=== PATIENT | female | born 1980 | race Caucasian/White ===

== ENCOUNTER → 2019-03-13 10:57 | Outpatient (BNVA) | payer OTHER, SELFPAY | PROVIDERS: Family Provider Nurse Practitioner; PCP Nurse Practitioner; Referring Provider Nurse Practitioner; Visit Provider Nurse Practitioner | DX: N30.90 Cystitis, unspecified without hematuria (principal) | CPT/HCPCS: 81003 ==

== ENCOUNTER 2019-03-28 14:53 | Outpatient (CLI) | payer OTHER, SELFPAY | END 2019-03-28 14:54 | disposition home or self-care (01) | LOC: LAB 14:57 | PROVIDERS: Family Provider Nurse Practitioner; PCP Nurse Practitioner; Visit Provider Nurse Practitioner | DX: N34.3 Urethral syndrome, unspecified (principal) | CPT/HCPCS: 87086 ==

== ENCOUNTER 2020-09-15 07:54 | Emergency (ER) | payer OTHER, SELFPAY ==
[2020-09-15 08:01] VITALS: BP 146/100; PULSE 105; RESP 16; TEMP 36.6; O2SAT 100; BMI 24.0
--- NOTE | 2020-09-15 08:05 | W.ED.GENADLT ---
HPI - General Adult General: Chief complaint: Chest Pain Stated complaint: Chest Pain Time Seen by Provider: 09/15/20 07:59 History of Present Illness: HPI narrative: This patient is a 40-year-old female who presents to the emergency department with a complaint of pain that starts in her left chest that radiates along her rib to her back. Patient states she was just driving to work and felt this pain. Patient states it hurts to move. On exam patient has pain over the paraspinous muscles along the rhomboids just below the shoulder blade. On the left side of her back. Which causes stabbing pain shooting around the rib. Patient states she has never had any issues like this before denies any awkward bending or stretching. The patient has pain with twisting of the torso and reaching with the left arm. We did discuss at length with patient about options. Patient will receive a Norflex injection. Patient is encouraged to rest today and alternate heat and ice. Follow-up with PCP in 2 to 3 days. May continue Tylenol Motrin as needed for any additional pain must follow-up with primary care physician as needed. Onset (ago): minute(s) Location: back Radiation: non-radiation Severity: moderate Severity scale (1-10): 4 Quality: stabbing Pain Consistency: constant Relieving factors: none Exacerbating factors: movement Associated symptoms: Deny chest pain, dyspnea, headache(s), nausea, rash, palpitations or vomiting Review of Systems General: Reports: 10 or more systems reviewed and unremarkable except in HPI and below Const: Denies: fever(s), chills, body aches or fatigue Eyes: Denies: change in vision or blurry vision ENMT: Denies: throat pain, hoarseness or mouth pain Card: Denies: chest pain, palpitations, irregular heart rhythm, edema, swelling of feet/ankles or lightheadedness Resp: Denies: dyspnea, productive cough, non-productive cough, wheezing or pain on inspiration GI: Denies: abdominal pain, nausea or vomiting : Denies: flank pain, difficulty voiding, dysuria, urinary frequency, urinary urgency or urinary hesitancy Musc: Reports: back pain; Denies: neck pain, extremity pain, extremity swelling, joint pain, joint swelling, joint redness, joint warmth or limited range of motion Skin/Breast: Denies: rash, pruritus, erythema or skin tenderness Neuro: Denies: headache(s), numbness in extremities or weakness in extremities Psych: Denies: anxiety or depression PFSH ED PFSH: Medical History History of hiatal hernia States that she was diagnosed with a hiatal hernia in 2016 and thinks that her problems of generalized abdominal pain, gastritis and irritation and abdomen are secondary to this. No pertinent past medical history Denies diabetes, asthma, hypertension, seizures, DVT/PE PCP: None--is in the process of finding a new PMD Surgical History History of breast augmentation 2001, bilateral Status post cholecystectomy Laparoscopic procedure performed on [address] Cheng Status post tubal ligation Laparoscopic procedure performed in 2009 Family History Mother Cancer of kidney Grandfather Parkinson disease maternal Denies family history of Cervical cancer Colon cancer Ovarian cancer Diabetes DVT (deep venous thrombosis) Heart disease Hyperlipidemia Breast cancer Anesthesia complication Bleeding disorder Pulmonary embolism Hypertension Thyroid condition Stroke Social History Smoking and tobacco status: current every day smoker Alcohol intake: never Physical Exam Const: COMMON NORMALS: no acute distress, average body habitus, patient oriented x3, no limitations, healthy appearing, alert and well nourished HENMT: COMMON NORMALS: normocephalic, atraumatic, hearing grossly normal bilaterally, external ears normal, EAC's normal, TM's normal bilaterally, Normal external nose present, Normal nasal mucous membranes and turbinates present, moist oral mucous membranes, oropharynx normal, dentition normal and gingiva normal HEAD & SCALP: normocephalic and atraumatic NOSE: Normal external nose present and Normal nasal mucous membranes and turbinates present EXTERNAL EAR: Yes external ears normal EXTERNAL AUDITORY CANAL: EAC's normal TYMPANIC MEMBRANE: TM's normal bilaterally Neck/C-Spine: COMMON NORMALS: full ROM, no lymphadenopathy, supple, no meningeal signs, no JVD, Thyroid normal and No carotid bruits THYROID: Thyroid normal Chest: COMMONS NORMALS: normal inspection of the chest, normal palpation of entire chest wall, normal inspection of the breasts and normal palpation of the breasts Breast/axilla inspection: Yes normal inspection of the breasts BREAST/AXILLA PALPATION: Yes normal palpation of the breasts Resp: COMMON NORMALS: normal respiratory effort, No retractions, No use of accessory muscles, clear to auscultation bilaterally and percussion normal AUSCULTATION: clear to auscultation bilaterally PERCUSSION: percussion normal Cardio: COMMON NORMALS: no JVD, regular rate, regular rhythm, S1 normal heart sound present, S2 normal heart sound present, No gallops present (Cardio), No clicks present (Cardio), No murmurs present (Cardio), No rub (Cardio) and Peripheral pulses 2+ throughout RATE: regular rate RHYTHM: regular rhythm HEART SOUNDS: S1 normal heart sound present and S2 normal heart sound present PERIPHERAL PULSES: Peripheral pulses 2+ throughout GI: COMMON NORMALS: Normal to inspection, nondistended, normoactive bowel sounds present, Soft to palpation, non-tender, No hepatosplenomegaly present, no masses and no bruits PALPATION: Yes Soft to palpation and Yes No hepatosplenomegaly present Back/Pelvis: COMMON NORMALS: thoracic and lumbar spine normal to inspection, thoraco-lumbar ROM normal and straight leg raise negative bilaterally GENERAL BACK: Yes tenderness (Small muscle spasm/trigger point left-sided paraspinous muscle.) BACK IMAGE (FEMALE): 1. Spasm that reproduces pain Extremity: COMMON NORMALS: normal to inspection, full ROM, capillary refill normal, no joint enlargement, no clubbing, cyanosis or edema, no calf tenderness and no pedal edema Neuro: COMMON NORMALS: patient oriented x3 SENSORIUM/ORIENTATION: Yes alert MENINGEAL SIGNS: Yes no meningeal signs MDM - General Adult MDM Narrative: Medical decision making narrative: This patient is a 40-year-old female who presents to the emergency department with a complaint of pain that starts in her left chest that radiates along her rib to her back. Patient states she was just driving to work and felt this pain. Patient states it hurts to move. On exam patient has pain over the paraspinous muscles along the rhomboids just below the shoulder blade. On the left side of her back. Which causes stabbing pain shooting around the rib. Patient states she has never had any issues like this before denies any awkward bending or stretching. The patient has pain with twisting of the torso and reaching with the left arm. We did discuss at length with patient about options. Patient will receive a Norflex injection. Patient is encouraged to rest today and alternate heat and ice. Follow-up with PCP in 2 to 3 days. May continue Tylenol Motrin as needed for any additional pain must follow-up with primary care physician as needed. Medical Records: Attestation: I reviewed the patient's medical records. Lab Data: Attestation: I reviewed the patient's lab results. Discharge Plan Discharge Patient Disposition: Home Clinical Impression: Back pain, Trigger point of thoracic region Condition: Stable Prescriptions: New cyclobenzaprine 10 mg tablet 10 mg PO BID PRN (Reason: muscle spasm) Qty: 10 RF: 0 No Action medroxyprogesterone [Depo-Provera] 150 mg/mL suspension 150 mg IM .EVERY 90 DAYS Qty: 1 RF: 3 Discharge Orders: Discharge ED (Routine); Ordered 09/15/20 Ordered By: Genaro Romero Discharge Diet: Advance as tolerated Discharge Activity: Resume usual activity Patient Instructions: Opioid Safety Activity Restrictions/Additional Instructions: Rest. Alternate heat and ice. Continue with Tylenol Motrin as needed for pain. If any additional medications needed follow-up with PCP. 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
[2020-09-15 08:27] VITALS: BP 136/109; PULSE 101; RESP 14; O2SAT 99
[2020-09-15] MEDS: orphenadrine 30 mg/mL Inj 2 mL 60 MG IM (08:32)
[2020-09-15 09:02] VITALS: BP 120/94; PULSE 97; RESP 12; O2SAT 97
== END 2020-09-15 08:53 ==
PROVIDERS: Emergency Provider Emergency Medicine
DX: M54.9 Dorsalgia, unspecified (principal); F17.200 Nicotine dependence, unspecified, uncomplicated
CPT/HCPCS: 96372; 99283; J2360

== ENCOUNTER 2021-01-12 12:52 | Outpatient (CLI) | payer OTHER, SELFPAY ==
[2021-01-12 12:57] VITALS: BP 129/89; PULSE 101; RESP 18; TEMP 36.9; O2SAT 97
[2021-01-12 13:02] VITALS: BMI 24.0
[2021-01-12 13:29] VITALS: BP 131/88; PULSE 87; RESP 18; TEMP 37; O2SAT 98
[2021-01-12 14:29] VITALS: BP 135/94; PULSE 85; RESP 18; TEMP 36.7; O2SAT 98
== END 2021-01-12 12:53 | disposition home or self-care (01) ==
LOC: OPS 12:55
PROVIDERS: PCP Nurse Practitioner; Visit Provider Nurse Practitioner
DX: U07.1 COVID-19 (principal)
CPT/HCPCS: 96365

== ENCOUNTER 2022-11-27 07:01 | Observation (INO) | payer OTHER, SELFPAY ==
[2022-11-27] VITALS (11 sets, daily range): BP systolic 104–143; BP diastolic 70–105; PULSE 64–100; RESP 10–19; TEMP 36.2–37.4; O2SAT 93–100
--- NOTE | 2022-11-27 07:04 | ED_ITS ---
HPI - Abdominal Pain General: Chief Complaint: Abdominal Pain Stated Complaint: lower abd pain Time Seen by Provider: 11/27/22 07:02 Source: patient Mode of arrival: ambulatory History of Present Illness: 42-year-old female presents emergency room complaining of abdominal pain she states it woke her up this morning. Midepigastric associated with nausea. She has not had any dysuria urgency or frequency no hematochezia melena hematemesis coffee-ground emesis. Nothing seems to exacerbate or relieve. She has a history of hiatal hernia. She has previously had a cholecystectomy and a tubal ligation. MD elicited complaint: abdominal pain Onset (ago): minute(s) Pain Consistency: constant Location: Epigastric Severity: severe Quality: cramping Radiation: none Exacerbating factors: nothing Relieving factors: nothing Associated Symptoms: Denies anorexia, belching, bloating, change in bowel habits, change in stool character, chills, coffee ground emesis, constipation, GI cramping, diarrhea, dyspepsia, dysuria, excessive flatus, fever(s), he artburn, hematochezia, hematuria, hematemesis, fecal incontinence, loose stools, melena, nausea, poor appetite, syncope and vomiting Review of Systems Const: Denies: fever(s) or chills Card: Denies: chest pain or syncope Resp: Denies: dyspnea, productive cough or non-productive cough GI: Reports: abdominal pain; Denies: nausea, vomiting, hematemesis, coffee ground emesis, heartburn, diarrhea, constipation, bloating, GI cramping, belching, excessive flatus, fecal incontinence, change in bowel habits, change in stool character, hematochezia or melena : Denies: dysuria or hematuria Skin/Breast: Denies: rash or pruritus PFSH ED PFSH: Medical History History of hiatal hernia States that she was diagnosed with a hiatal hernia in 2016 and thinks that her problems of generalized abdominal pain, gastritis and irritation and abdomen are secondary to this. No pertinent past medical history Denies diabetes, asthma, hypertension, seizures, DVT/PE PCP: None--is in the process of finding a new PMD Surgical History History of breast augmentation 2001, bilateral Status post cholecystectomy Laparoscopic procedure performed on [address] Cheng Status post tubal ligation Laparoscopic procedure performed in 2009 Family History Mother Cancer of kidney Grandfather Parkinson disease maternal Denies family history of Cervical cancer Colon cancer Ovarian cancer Diabetes DVT (deep venous thrombosis) Heart disease Hyperlipidemia Breast cancer Anesthesia complication Bleeding disorder Pulmonary embolism Hypertension Thyroid condition Stroke Social History Smoking and tobacco status: former smoker Alcohol intake: never Substance/Drug Use: never Physical Exam Const: GENERAL APPEARANCE: cooperative ORIENTATION/CONSCIOUSNESS: Yes awake, Yes oriented to person, Yes oriented to place and Yes oriented to time HENMT: COMMON NORMALS: normocephalic, atraumatic and hearing grossly normal bilaterally HEAD & SCALP: normocephalic and atraumatic Resp: COMMON NORMALS: normal respiratory effort, No retractions, No use of accessory muscles and clear to auscultation bilaterally AUSCULTATION: clear to auscultation bilaterally Cardio: COMMON NORMALS: regular rate, regular rhythm and No murmurs present (Cardio) RATE: regular rate RHYTHM: regular rhythm GI: COMMON NORMALS: No hepatosplenomegaly present AUSCULTATION: Yes normoactive bowel sounds PALPATION: Yes Tenderness to palpation present (GI) (Epigastric), No Guarding due to palpation present (GI) and Yes No hepatosplenomegaly present Extremity: COMMON NORMALS: normal to inspection, capillary refill normal, no clubbing, cyanosis or edema, no calf tenderness and no pedal edema Neuro: SENSORIUM/ORIENTATION: Yes oriented to person, Yes oriented to place and Yes oriented to time Skin: COMMON NORMALS: no rashes or lesions noted GENERAL SKIN EXAM: no rashes or lesions noted Course Vital Signs: Vital signs: Vital Signs Temperature 97.7 F 11/27/22 07:06 Pulse Rate 87 11/27/22 07:06 Respiratory Rate 16 11/27/22 07:06 Blood Pressure 143/105 11/27/22 07:06 Pulse Oximetry 100 11/27/22 07:06 Oxygen Delivery Me thod Room Air 11/27/22 07:06 MDM - Abdominal Pain Medical Decision Making Acute appendicitis. Pain is well controlled at this point. Patient has been given Zosyn. Discussed with on-call general surgery, Dr. Spencer is planning on taking patient directly to the OR from the ER. Medical Records I reviewed the patient's medical records. Lab Data I reviewed the patient's lab results. 11/27/22 07:14 11/27/22 07:14 Labs/Radiology: Radiology Impressions Abdomen/Pelvis CT 11/27/22 07:12 IMPRESSION: Acute appendicitis is demonstrated. No free air or free fluid collections are appreciated to indicate perforation. THIS REPORT CONTAINS FINDINGS THAT MAY BE CRITICAL TO PATIENT CARE. The findings were verbally communicated via telephone conference at 8:34 AM CDT on 11/27/2022 with DARIN JAMES. The findings were acknowledged and understood. Laboratory Results WBC 7.72 10^3/uL (3.29-11.43) 11/27/22 07:14 RBC 5.16 10^6/uL (3.85-5.65) 11/27/22 07:14 Hgb 15.40 g/dL (11.27-16.99) 11/27/22 07:14 Hct 46.3 % (36-47) 11/27/22 07:14 MCV 89.7 fl (85-98) 11/27/22 07:14 MCH 29.8 pg (27-33) 11/27/22 07:14 MCHC 33.3 g/dL (30-55) 11/27/22 07:14 RDW 12.5 % (12.1-15.1) 11/27/22 07:14 Plt Count 236 10^3/cmm (157-399) 11/27/22 07:14 MPV 9.8 fL (7.4-10.4) 11/27/22 07:14 Neut % (Auto) 63.5 % 11/27/22 07:14 Lymph % (Auto) 30.7 % 11/27/22 07:14 [place] % (Auto) 4.4 % 11/27/22 07:14 Eos % (Auto) 0.6 % 11/27/22 07:14 Baso % (Auto) 0.5 % 11/27/22 07:14 Neut # (Auto) 4.90 10^3/uL (1.8-7.7) 11/27/22 07:14 Lymph # (Auto) 2.4 10^3/uL (0.8-4.8) 11/27/22 07:14 [place] # (Auto) 0.3 10^3/uL (0.2-0.9) 11/27/22 07:14 Eos # (Auto) 0.1 10^3/uL (0.0-0.8) 11/27/22 07:14 Baso # (Auto) 0.0 10^3/uL (0.0-0.1) 11/27/22 07:14 Nucleated RBC % (auto) 0 % 11/27/22 07:14 Nucleated RBCs # 0.0 /100WBC 11/27/22 07:14 Sodium 139 mmol/L (136-145) 11/27/22 07:14 Potassium 4.3 mmol/L (3.5-5.1) 11/27/22 07:14 Chloride 106 mmol/L (98-107) 11/27/22 07:14 Carbon Dioxide 20 mmol/L (22-29) L 11/27/22 07:14 Anion Gap 17.3 (5-19) 11/27/22 07:14 BUN 12 mg/dL (6-20) 11/27/22 07:14 Creatinine 0.8 mg/dL (0.5-0.9) 11/27/22 07:14 GFR Calculation 79.0 mL/min (90-130) L 11/27/22 07:14 Glucose 110 mg/dL (65-115) 11/27/22 07:14 Calculated Osmolality 288 mOsm/kg (285-295) 11/27/22 07:14 Calcium 9.5 mg/dL (8.5-10.5) 11/27/22 07:14 Total Bilirubin 0.6 mg/dL (0.15-1.2) 11/27/22 07:14 AST 15 U/L (0-32) 11/27/22 07:14 ALT 22 U/L (0-33) 11/27/22 07:14 Alkaline Phosphatase 60 U/L (35-105) 11/27/22 07:14 Total Protein 8.2 g/dL (6.6-8.7) 11/27/22 07:14 Albumin 4.9 g/dL (3.5-5.2) 11/27/22 07:14 Globulin 3.3 g/dL (1.3-4.6) 11/27/22 07:14 Lipase 22 U/L (13-60) 11/27/22 07:14 HCG, Qual Negative (Negative) 11/27/22 07:14 Urine Color Yellow (Yellow) 11/27/22 08:22 Urine Appearance Clear (CLEAR) 11/27/22 08:22 Urine pH 6 (5-7) 11/27/22 08:22 Ur Specific [place] 1.010 (1.005-1.030) 11/27/22 08:22 Urine Protein Neg (Negative) 11/27/22 08:22 Urine Glucose (UA) Norm (Normal) 11/27/22 08:22 Urine Ketones 1+ (Negative) H 11/27/22 08:22 Urine Blood Neg (Negative) 11/27/22 08:22 Urine Nitrate Negative (Negative) 11/27/22 08:22 Urine Bilirubin Neg (Negative) 11/27/22 08:22 Urine Urobilinogen Norm mg/dL (Negative) 11/27/22 08:22 Ur Leukocyte Esterase Trace (Negative) H 11/27/22 08:22 Urine RBC 0-4 /hpf (0-2) H 11/27/22 08:22 Urine WBC 0-4 /hpf (0-5) H 11/27/22 08:22 Ur Squamous Epith Cells 0-4 /hpf (0-5) H 11/27/22 08:22 Amorphous Sediment Not Reportable 11/27/22 08:22 Urine Bacteria 1+ /hpf (NONE) H 11/27/22 08:22 Urine Mucus 1+ /hpf 11/27/22 08:22 All radiology interpretation(s) finalized by discharge Discharge Plan Discharge Patient Disposition: Admitted As Inpatient Clinical Impression: Acute appendicitis Condition: Stable Coding Level of Care Code ED [employer] V[employer] Developer for Alice Wilde
--- NOTE | 2022-11-27 07:12 | CTR_ITS ---
PROCEDURE INFORMATION: Exam: CT Abdomen And Pelvis Without Contrast Exam date and time: 11/27/2022 8:07 AM Age: 42 years old Clinical indication: Abdominal pain; Epigastric; Prior surgery; Surgery date: 6+ months; Surgery type: Gb tubal.No history of trauma or recent surgery is provided. TECHNIQUE: Imaging protocol: Computed tomography of the abdomen and pelvis without contrast. 212image(s) are provided. Radiation optimization: All CT scans at this facility use at least one of these dose optimization techniques: automated exposure control; mA and/or kV adjustment per patient size (includes targeted exams where dose is matched to clinical indication); or iterative reconstruction. Other technique: Axial images are available with sagittal and coronal reconstruction views. Automated dose exposure control is utilized. The DLP is 529.03. REPORTING DATA: Count of CT and Cardiac NM exams in prior 12 months: This patient has received 0 known CTs and 0 known cardiac nuclear medicine studies in the 12 months prior to the current study. COMPARISON: No recent CT comparison is currently available. Ultrasound report of 2019. Pelvic ultrasound report of 2019. HIDA scan report of 2019. RADIATION DOSE METRICS: Total DLP (mGy-cm): 529.03 FINDINGS: Lungs: No lobar consolidation is appreciated. Liver: There appears to be some mild hepatic steatosis. There is very subtle central biliary ductal prominence with no distal radiopaque calculus currently appreciated. Gallbladder and bile ducts: Cholecystectomy clips are present. Pancreas: No pancreatic ductal dilatation or calculus is currently appreciated. Spleen: Unremarkable. Adrenal glands: Unremarkable. Kidneys and ureters: No radiopaque obstructive calculus or hydronephrosis appreciated. There are some subcentimeter nonobstructive renal level calcifications for example including at the lower poles along with some subcentimeter fluid dense simple appearing cystic related change. Stomach and bowel: Some aspects of the colon are undistended. This may also be peristaltic related.There is abundant stool present limiting mucosal detail evaluation.The bowel gas pattern appears nonobstructive. There is a small sliding-type hiatal hernia demonstrated with slight gastroesophageal fold thickening. Appendix: The appendix is dilated and inflamed for example greatest thickness of approximately 1.2 cm. There is stranding adjacent along with some reactive appearing lymph nodes as it extends superior posteriorly from the cecal tip. Intraperitoneal space: No layering free air or significant abdominal fluid collections are appreciated. There appears to be some trace pelvic fluid which may also be physiologic. Vasculature: No abdominal aortic aneurysmal dilatation or periaortic fluid is appreciated. Lymph nodes: There are borderline reactive appearing para-aortic and mesenteric lymph nodes overall present.This along with ground-glass attenuation centrally can be seen with previous inflammation or adenitis sequela. Urinary bladder: The bladder is incompletely fluid filled for evaluation which may exagerate the wall thickness. This can also be seen with post inflammation sequela. Reproductive: Unremarkable as visualized. Bones/joints: Osseous alignment is maintained.No interval displaced fracture or dislocation is appreciated. There is some mild chronic appearing disc space degeneration of the lumbosacral junction predominantly. There is some incidental incomplete posterior element fusion at the lumbosacral junction. 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 Soft tissues: No radiopaque foreign body or subcutaneous emphysema is appreciated. There are chest wall breast implant surgical changes present. There are some posterior gluteal injection type related changes present. No other significant interval changes are appreciated. CT/CT abdomen pelvis con [id number] IMPRESSION: Acute appendicitis is demonstrated. No free air or free fluid collections are appreciated to indicate perforation. THIS REPORT CONTAINS FINDINGS THAT MAY BE CRITICAL TO PATIENT CARE. The findings were verbally communicated via telephone conference at 8:34 AM CDT on 11/27/2022 with LUIS GUPTA. The findings were acknowledged and understood.
[2022-11-27] MEDS: ondansetron 2 mg/ML SDV 2 mL 4 MG IVP (07:17)
[2022-11-27] MEDS: morphine 4 mg/mL SDV 1 mL IVP ×3 (07:17→07:58)
[2022-11-27] MEDS: lactated ringers 1,000 ML 999 ML IV ×2 (07:19→08:18)
[2022-11-27 07:35] LABS: Basophils % 0.5 %; Eosinophils # 0.1 10^3/uL (0.0-0.8); Eosinophils % 0.6 %; Hematocrit 46.3 % (36-47); Lymphocytes # 2.4 10^3/uL (0.8-4.8); Lymphocytes % 30.7 %; Mean Corpuscular HGB Conc 33.3 g/dL (30-55); Mean Corpuscular Hemoglobin 29.8 pg (27-33); Mean Corpuscular Volume 89.7 fl (85-98); Mean Platelet Volume 9.8 fL (7.4-10.4); Monocytes # 0.3 10^3/uL (0.2-0.9); Monocytes % 4.4 %; Neutrophils % 63.5 %; Nucleated Red Blood Cells % 0 %; Platelet Count 236 10^3/cmm (157-399); Red Blood Count 5.16 10^6/uL (3.85-5.65); Red Cell Distribution Width 12.5 % (12.1-15.1); White Blood Count 7.72 10^3/uL (3.29-11.43)
[2022-11-27 07:47] LABS: Alanine Aminotransferase 22 U/L (0-33); Albumin Level 4.9 g/dL (3.5-5.2); Alkaline Phosphatase 60 U/L (35-105); Anion Gap 17.3 (5-19); Aspartate Amino Transferase 15 U/L (0-32); Blood Urea Nitrogen 12 mg/dL (6-20); Calcium 9.5 mg/dL (8.5-10.5); Carbon Dioxide 20 mmol/L (22-29); Chloride 106 mmol/L (98-107); Globulin 3.3 g/dL (1.3-4.6); Glucose 110 mg/dL (65-115); Lipase 22 U/L (13-60); Osmolality Calculated 288 mOsm/kg (285-295); Potassium 4.3 mmol/L (3.5-5.1); Sodium 139 mmol/L (136-145); Total Bilirubin 0.6 mg/dL (0.15-1.2); Total Protein 8.2 g/dL (6.6-8.7)
[2022-11-27] MEDS: promethazine 25 mg/mL SDV 1 mL IM (07:50)
[2022-11-27 07:56] LABS: HCG, Serum Qual Negative (Negative)
[2022-11-27 08:46] LABS: Add Urine Culture? No; Add Urine Microscopic? YES; Bacteria Urine 1+ /hpf; Bilirubin Urine Neg (Negative); Blood Urine Neg (Negative); Glucose Urine UA Norm (Normal); Ketones Urine 1+ (Negative); Leukocyte Esterase Urine Trace (Negative); Mucus Urine 1+ /hpf; Nitrate Urine Negative (Negative); Protein Urine Neg (Negative); RBC Urine 0-4 /hpf (0-2); Squamous Epithelial Cell Urine 0-4 /hpf (0-5); Urine Appearance Clear (CLEAR); Urine Color Yellow (Yellow); Urobilinogen Urine Norm (Negative); WBC Urine 0-4 /hpf (0-5); pH Urine 6 (5-7)
[2022-11-27] MEDS: piperacillin-tazobactam 3.375 GM in sodium chloride 0.9% (plus) 50 ML IV (08:56)
[2022-11-27] MEDS: ketorolac 30 mg/mL INJ IVP (09:34)
--- NOTE | 2022-11-27 09:42 | PM.CONSULT ---
Providers/Reason For Consult Consulting Physician/Specialty*: General surgery Reason for Consult*: Acute appendicitis Attending Physician: Blayne Spencer MD History of Present Illness History of Present Illness Dasha Jesus is a 42 year old female who presents to the hospital complaining of 5 hours of severe abdominal pain in the lower quadrants, pain woke her up from her sleep. She denies nausea vomit, no changes in bowel movements. Pain is at the level of 9 out of 10. Review of Systems Narrative: 10 point review of systems done and negative otherwise noted in HPI Medications/Allergies Home Medications Medication Instructions Recorded Confirmed Last Taken Type medroxyprogesterone 150 mg/mL 150 mg IM .EVERY 90 DAYS #1 mL 12/03/21 11/27/22 09/21/22 Rx intramuscular suspension ~got in september (Depo-Provera) acetaminophen 500 mg tablet 500 - 1,000 mg PO Q6H PRN Pain 11/27/22 11/27/22 11/27/22 05:00 History 2 tabs ibuprofen 200 mg tablet 400 - 600 mg PO Q6H PRN Pain 11/27/22 11/27/22 Unknown History Allergies Allergy/AdvReac Type Severity Reaction Status Date / Time codeine AdvReac nausea and Verified 11/27/22 07:23 vomiting PFSH Acute PFSH: Medical History History of hiatal hernia States that she was diagnosed with a hiatal hernia in 2016 and thinks that her problems of generalized abdominal pain, gastritis and irritation and abdomen are secondary to this. No pertinent past medical history Denies diabetes, asthma, hypertension, seizures, DVT/PE PCP: None--is in the process of finding a new PMD Surgical History History of breast augmentation 2001, bilateral Status post cholecystectomy Laparoscopic procedure performed on [address] Cheng Status post tubal ligation Laparoscopic procedure performed in 2009 Family History Mother Cancer of kidney Grandfather Parkinson disease maternal Denies family history of Cervical cancer Colon cancer Ovarian cancer Diabetes DVT (deep venous thrombosis) Heart disease Hyperlipidemia Breast cancer Anesthesia complication Bleeding disorder Pulmonary embolism Hypertension Thyroid condition Stroke Social History Smoking and tobacco status: former smoker Alcohol intake: never Substance/Drug Use: never Vitals/I&O/Wt Last Vital Signs Temp 97.7 F 11/27/22 07:06 Pulse 84 11/27/22 09:36 Resp 18 11/27/22 09:36 BP 120/78 11/27/22 09:36 Pulse Ox 99 11/27/22 09:36 O2 Del Method Room Air 11/27/22 07:06 11/26/22 11/27/22 11/27/22 22:59 06:59 14:59 Intake Total 982.35 / 982.35 Balance 982.35 / 982.35 Weight last 48 hrs Weight 150 lb Physical Exam Narrative: General : Patient is well developed , no acute distress, oriented x3 Head : Normal cephalic, a-traumatic. Nose : Mucous membranes are without erythema. Lungs : Equal chest rise bilaterally, no use of accessory muscles, trachea is midline. CV : Rate and rhythm are normal. Abdomen : Soft, tender to palpation in the right lower quadrant, McBurney positive. Extremities : No edema. Upper extremities are normal bilaterally. Back : non-tender to palpation, no CVA tenderness. Data 11/27/22 07:14 11/27/22 07:14 A&P Assessment and plan (1) Acute appendicitis: Plan After complete history, physical examination and review of all available clinical data the following is my assessment. Patient presents with a clinical picture of acute appendicitis, which was verified by imaging. No evidence of perforation on CT scan. Patient will be taken to the OR for laparoscopic appendectomy. I discussed all the risk and benefits of the procedure including but not limited to bleeding, infection, damage of the surrounding structures, abscess formation, need for additional interventions, hernia formation, need for conversion to open procedure. Patient agrees with the risk benefits and wishes to proceed. In the meantime patient will receive 1 dose of Zosyn and Toradol for pain and antibiotic management. Coding Level of Care Code Acute Code for [facility] Diagnoses Acute appendicitis K35.80
--- NOTE | 2022-11-27 11:21 | P.ANESASSM_ITS ---
Pre-Anesthetic Assessment Height/Weight: Height 1.63 m Weight 68.039 kg Temp Pulse Resp BP Pulse Ox O2 Del Method 98.1 F 100 18 139/78 95 Room Air 11/27/22 10:00 11/27/22 10:00 11/27/22 10:00 11/27/22 10:00 11/27/22 10:00 11/27/22 10:00 Operation Date: 11/27/22 09:20 Proposed Procedures p Laparoscopic Appendectomy(Right) - Blayne Spencer MD Familial anesthetic complications: None Was Beta Devaughn taken within 24 hours: N/A Was Clonidine taken within 24 hours: N/A Last intake: > 8 hrs Social Alcohol and Tobacco Exam alert, oriented x 3, clear to auscultation bilaterally and regular rate & rhythm Airway Mallampati: Class I Dentition: full Anesthetic Plan ASA status: 1 Anesthesia: General Risk of > 500 ml blood loss (7ml/kg in children): No Medications/Allergies Home Medications Medication Instructions Recorded Confirmed Last Taken Type medroxyprogesterone 150 mg/mL 150 mg IM .EVERY 90 DAYS #1 mL 12/03/21 11/27/22 09/21/22 Rx intramuscular suspension ~got in september (Depo-Provera) acetaminophen 500 mg tablet 500 - 1,000 mg PO Q6H PRN Pain 11/27/22 11/27/2209/12 05:00 History 2 tabs ibuprofen 200 mg tablet 400 - 600 mg PO Q6H PRN Pain 11/27/22 11/27/22 Unknown History Allergies Allergy/AdvReac Type Severity Reaction Status Date / Time codeine AdvReac nausea and Verified 11/27/22 07:23 vomiting [facility] Anesthesia Medical History History of hiatal hernia States that she was diagnosed with a hiatal hernia in 2016 and thinks that her problems of generalized abdominal pain, gastritis and irritation and abdomen are secondary to this. No pertinent past medical history Denies diabetes, asthma, hypertension, seizures, DVT/PE PCP: None--is in the process of finding a new PMD Surgical History History of breast augmentation 2001, bilateral Status post cholecystectomy Laparoscopic procedure performed on [address] Cheng Status post tubal ligation Laparoscopic procedure performed in 2009 Family History Mother Cancer of kidney Grandfather Parkinson disease maternal Denies family history of Cervical cancer Colon cancer Ovarian cancer Diabetes DVT (deep venous thrombosis) Heart disease Hyperlipidemia Breast cancer Anesthesia complication Bleeding disorder Pulmonary embolism Hypertension Thyroid condition Stroke Social History Smoking and tobacco status: former smoker Alcohol intake: never Substance/Drug Use: never Data Anesthesia 11/27/22 07:14 11/27/22 07:14 Short CBC 11/27/22 Range/Units 07:14 WBC 7.72 (3.29-11.43) 10^3/uL Hgb 15.40 (11.27-16.99) g/dL Hct 46.3 (36-47) % MCV 89.7 (85-98) fl Plt Count 236 (157-399) 10^3/cmm Neut % (Auto) 63.5 % Neut # (Auto) 4.90 (1.8-7.7) 10^3/uL BMP 11/27/22 07:14 Sodium 139 Potassium 4.3 Chloride 106 Carbon Dioxide 20 L BUN 12 Creatinine 0.8 Glucose 110 Calcium 9.5 Liver Function 11/27/22 Range/Units 07:14 Total Bilirubin 0.6 (0.15-1.2) mg/dL AST 15 (0-32) U/L ALT 22 (0-33) U/L Alkaline Phosphatase 60 (35-105) U/L Albumin 4.9 (3.5-5.2) g/dL Urine 11/27/22 Range/Units 08:22 Urine Color Yellow (Yellow) Urine Appearance Clear (CLEAR) Urine pH 6 (5-7) Ur Specific [place] 1.010 (1.005-1.030) Urine Protein Neg (Negative) Urine Glucose (UA) Norm (Normal) Urine Ketones 1+ H (Negative) Urine Nitrate Negative (Negative) Urine Bilirubin Neg (Negative) Ur Leukocyte Esterase Trace H (Negative) Urine RBC 0-4 H (0-2) /hpf Urine WBC 0-4 H (0-5) /hpf Cardiac Studies: No Data to Display
[2022-11-27] MEDS: sodium chloride 0.9% 1,000 ML 30 ML IV (11:41)
[2022-11-27] MEDS: BUPivacaine 0.25% INJ 10 mL INJECTION (12:55)
--- NOTE | 2022-11-27 13:07 | PM.OP ---
Operative Report Date of procedure: November 27, 2022 Pre-op diagnosis: Acute appendicitis Post-op diagnosis: Acute appendicitis Specimens removed/disposition: Appendix Surgeon: Blayne Spencer MD Litigation Associate: JUAN MIGUEL OR Staff Complications: None Findings: Inflamed appendix at the level of the tip,, normal base. No evidence of perforation. Brief History: Is a 42-year-old female who presents to hospital complaining of abdominal pain, CT scan was positive for evidence of acute appendicitis. After discussion of risk and benefits as documented in my preop note patient was taken to the OR for laparoscopic appendectomy. Procedure: Patient was put in a supine position. General esthesia given. The abdomen was prepped and draped in the usual sterile fashion. Timeout was conducted. The abdomen was accessed via an infraumbilical incision with an open technique a 10 mm Trocar Was Placed and Fixed to the Fascia with 0 Vicryl. Additional 5 Mm Trocars Were Placed in the Suprapubic and Left Lower Quadrant Regions. Under Direct Visualization. No Evidence of Visceral Injury Was Noted upon Entry to the Abdomen. The Appendix Was Identified in the Right Lower Quadrant. It Was Noted to Be on a para-cecal Position. LigaSure Was Used To Dissect the Lateral Attachments to the Abdominal Wall from the Appendix and to Take down the Medial to the Level of the Base, Once the Complete Appendix Was Freed up from the Medial I Then Proceeded to Transect the Appendix with a 45 Mm Blue Low Endo SANTI Stapler. The Staple Line Appeared Viable, No Evidence of Bleeding, the Specimen Was Then Retrieved Via the Umbilical Incision with a Endo Catch Bag. Umbilical Trocar Was Removed. The Umbilical Trocar Site Was Then Closed with a Frank-Osman 0 Vicryl Suture under Direct Visualization. The Suprapubic Trocar Was Removed under Direct Visualization in the Left Lower Quadrant Trocar Was Used To Adequate the Pneumoperitoneum and Subsequently Removed. The Wounds Were Then Closed with #4-0 Monocryl for the Skin and Dermabond Was Applied. At the End of the Procedure All Counts Were Correct. The Patient Was Extubated and Transferred to the PACU in Stable Condition.
== END 2022-11-27 16:02 | disposition home or self-care (01) ==
LOC: ER 07:21 → OR 08:50 → ER 09:35 → MEDSURG 13:13
PROVIDERS: Admitting Provider Surgery; Emergency Provider Family Medicine; Visit Provider Surgery
PROC: 0DTJ4ZZ Resection of Appendix, Percutaneous Endoscopic Approach (ICD-10-PCS; CPT 44970; principal; 2022-11-27 09:00)
DX: K35.80 Unspecified acute appendicitis (principal); Z87.891 Personal history of nicotine dependence
CPT/HCPCS: 44970; 74176; 80053; 81001; 83690; 84703; 85025; 88304; 96365; 96372; 96375; 96376; 99285; G0378; J1100; J1170; J1200; J1885; J2250; J2270; J2405; J2543; J2550; J2704; J2710; J3010; J3490; J7030; J7120

== ENCOUNTER → 2023-01-11 10:30 | Outpatient (BNVA) | payer OTHER, SELFPAY | PROVIDERS: Visit Provider Obstetrics & Gynecology | DX: Z12.4 Encounter for screening for malignant neoplasm of cervix (principal); Z30.9 Encounter for contraceptive management, unspecified | CPT/HCPCS: 87624 ==

== ENCOUNTER → 2023-01-20 09:27 | Outpatient (BNVA) | payer OTHER, SELFPAY | PROVIDERS: Visit Provider Obstetrics & Gynecology | DX: N93.9 Abnormal uterine and vaginal bleeding, unspecified (principal) | CPT/HCPCS: 76830 ==

== ENCOUNTER → 2023-10-04 07:39 | Outpatient (BNVA) | payer OTHER, SELFPAY | PROVIDERS: Visit Provider Nurse Practitioner Family | DX: R30.0 Dysuria (principal) | CPT/HCPCS: 81000 ==

== ENCOUNTER 2023-12-29 07:47 | Outpatient (CLI) | payer OTHER, SELFPAY ==
--- NOTE | 2023-12-29 07:53 | MM_ITS ---
WS: [id number] BILATERAL SCREENING DIGITAL BREAST MAMMOGRAPHY WITH NADYA DISPLACEMENT VIEWS. CAD PERFORMED. HISTORY: SCREENING COMPARISON: None available. Bilateral craniocaudal and mediolateral oblique views are performed with tomosynthesis and SM. Nadya displacement views in CC and MLO projection also performed. Breasts composition: There are scattered areas of fibroglandular density. Implants are retropectoral and intact. There is a well-circumscribed mass in the lateral inferior RIG HT breast measuring 5 x 4 x 4 mm. No additional mass or calcification. MM/MM [facility] tomosynthesis [id number] IMPRESSION: BI-RADS: 0 - Incomplete: Need additional imaging evaluation. FOLLOW-UP: Need Additional Imaging Ultrasound recommended: Ultrasound directed to the lateral RIGHT breast from 7- 10 o'clock. Small mass adjacent to the implant.
== END 2023-12-29 07:48 | disposition home or self-care (01) ==
PROVIDERS: Visit Provider Obstetrics & Gynecology
DX: Z12.31 Encounter for screening mammogram for malignant neoplasm of breast (principal); R92.323 Mammographic fibroglandular density, bilateral breasts; N63.14 Unspecified lump in the right breast, lower inner quadrant; Z98.82 Breast implant status
CPT/HCPCS: 77063; 77067

== ENCOUNTER 2024-01-03 10:41 | Outpatient (CLI) | payer OTHER, SELFPAY ==
--- NOTE | 2024-01-03 10:56 | US_ITS ---
WS: [id number] ULTRASOUND RIGHT BREAST HISTORY: ABNORMAL MAMMO COMPARISON: 12/29/2023 TECHNIQUE: 2-D and Doppler. There is a very slightly lobulated hypoechoic mass adjacent to the RIGHT breast implant at 7:00, 4 cm from the nipple. This mass does correspond in size and location to the mammographic abnormality. Thi s hypoechoic mass measures 0.4 x 0.3 x 0.2 cm. Due to its position adjacent to the implant through tr ansmission is difficult to determine. US/US breast RT limited* [id number] IMPRESSION: BI-RADS: 3- Probably Benign FOLLOW-UP: 6 Month Follow-up Recommend RIGHT breast ultrasound follow-up in 6 months. This is an indetermina te mass which could be a cyst, lymph node or very early neoplasm adjacent to th e RIGHT breast implant.
== END 2024-01-03 10:42 | disposition home or self-care (01) ==
LOC: RAD 10:42
PROVIDERS: PCP Obstetrics & Gynecology; Visit Provider Obstetrics & Gynecology
DX: N63.14 Unspecified lump in the right breast, lower inner quadrant (principal); Z98.82 Breast implant status
CPT/HCPCS: 76642

== ENCOUNTER → 2024-01-05 10:05 | Outpatient (BNVA) | payer OTHER, SELFPAY | PROVIDERS: PCP Obstetrics & Gynecology; Visit Provider Nurse Practitioner Women's Health | DX: R59.9 Enlarged lymph nodes, unspecified (principal) | CPT/HCPCS: 80053; 85025 ==

== ENCOUNTER 2024-05-08 07:42 | Outpatient (CLI) | payer OTHER, SELFPAY ==
--- NOTE | 2024-05-08 07:45 | US_ITS ---
WS: [id number] ULTRASOUND LEFT BREAST HISTORY: N63.20 - Unspecified lump in the left breast, new palpable nodules towards the LEFT axilla and swelling. COMPARISON: Mammogram 12/29/2023 TECHNIQUE: 2-D and Doppler. Ultrasound directed to the axilla where there are benign lymph nodes. Benign fatty lymph nodes with normal shape. Similar size lymph nodes noted on the mammogram from 12/29/2023. No suspicious masses or area of shadowing. US/US breast LT limited* [id number] IMPRESSION: BI-RADS: 2- Benign FOLLOW-UP: See Report No ultrasound abnormality LEFT breast. Return to annual screening mammography.
== END 2024-05-08 07:43 | disposition home or self-care (01) ==
PROVIDERS: PCP Obstetrics & Gynecology; Visit Provider Obstetrics & Gynecology
DX: N63.20 Unspecified lump in the left breast, unspecified quadrant (principal); R92.8 Other abnormal and inconclusive findings on diagnostic imaging of breast; R59.0 Localized enlarged lymph nodes
CPT/HCPCS: 76642

== ENCOUNTER 2024-07-19 16:28 | Emergency (ER) | payer OTHER, SELFPAY ==
--- NOTE | 2024-07-19 16:32 | ECG_ITS ---
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 Measurements Intervals [place] Rate: 111 P: 65 GA: 140 QRS: 78 QRSD: 101 T: 67 QT: 336 QTc: 458 Interpretive Statements SINUS TACHYCARDIA INCOMPLETE RIGHT BUNDLE BRANCH BLOCK [90+ ms QRS DURATION, TERMINAL R IN V1/V2, 40+ ms S IN I/aVL/V4/V5/V6] No previous ECG available for comparison Electronically Signed On 07-24-2024 11:49:40 CDT by Altaf Redd M.D. [email or web address]
[2024-07-19 16:34] VITALS: BP 139/87; PULSE 116; RESP 17; TEMP 36.7; O2SAT 99; BMI 27.4
--- NOTE | 2024-07-19 17:58 | CTR_ITS ---
PROCEDURE INFORMATION: Exam: CTA Chest With Contrast Exam date and time: 07/19/2024 6:52 PM Age: 43 years old Clinical indication: Chest wall pain; Additional info: Chest pain TECHNIQUE: Imaging protocol: Computed tomographic angiography of the chest with contrast. Exam focused on the arteries. 3D rendering (Not supervised by radiologist): MIP and/or 3D reconstructed images were created by the technologist. Radiation optimization: All CT scans at this facility use at least one of these dose optimization techniques: automated exposure control; mA and/or kV adjustment per patient size (includes targeted exams where dose is matched to clinical indication); or iterative reconstruction. Contrast material: OMNIPAQUE 350; Contrast volume: 100 ml; Contrast route: INTRAVENOUS (IV); COMPARISON: CT abdomen pelvis wo con [id number] 11/27/2022 8:07 AM RADIATION DOSE METRICS: Total DLP (mGy-cm): 323.41 FINDINGS: Pulmonary arteries: The pulmonary arteries are adequately opacified for evaluation to the subsegmental level. There is no filling defect to suggest embolism. Aorta: The aorta is unremarkable. There is no aneurysm. Lungs: There is no consolidation. Pleural spaces: There is no pleural effusion or pneumothorax. Heart: There is no pericardial effusion. Heart size is normal. Lymph nodes: There is no mediastinal or hilar lymphadenopathy. Intraperitoneal space: Visible structures in the upper abdomen are unremarkable. Bones/joints: Bones are unremarkable. Soft tissues: There are bilateral subpectoral saline breast implants without evidence of extracapsular rupture. The extrathoracic soft tissues are unremarkable. CT/CT angio chest PE protcl [id number] IMPRESSION: No pulmonary embolism.
[2024-07-19 18:17] LABS: Basophils # 0.1 10^3/uL (0.0-0.1); Basophils % 0.7 %; Eosinophils # 0.1 10^3/uL (0.0-0.8); Eosinophils % 0.8 %; Hematocrit 44.6 % (36-47); Lymphocytes # 2.1 10^3/uL (0.8-4.8); Lymphocytes % 29.7 %; Mean Corpuscular HGB Conc 32.3 g/dL (30-55); Mean Corpuscular Hemoglobin 29.8 pg (27-33); Mean Corpuscular Volume 92.3 fl (85-98); Mean Platelet Volume 9.6 fL (7.4-10.4); Monocytes # 0.4 10^3/uL (0.2-0.9); Monocytes % 6.1 %; Neutrophils % 62.4 %; Nucleated Red Blood Cells % 0 %; Platelet Count 217 10^3/cmm (157-399); Red Blood Count 4.83 10^6/uL (3.85-5.65); Red Cell Distribution Width 12.8 % (12.1-15.1); White Blood Count 7.06 10^3/uL (3.29-11.43)
[2024-07-19 18:36] LABS: D Dimer <= 0.27 ug/mLFEU (0-0.59)
[2024-07-19 18:43] VITALS: BP 140/94; PULSE 88; O2SAT 98
[2024-07-19 18:44] LABS: Troponin(5th) Baseline < 6 ng/L (0-10)
[2024-07-19 18:53] LABS: Alanine Aminotransferase 23 U/L (0-33); Albumin Level 4.4 g/dL (3.5-5.2); Alkaline Phosphatase 54 U/L (35-105); Anion Gap 17.9 (5-19); Aspartate Amino Transferase 16 U/L (0-32); Blood Urea Nitrogen 14 mg/dL (6-20); Calcium 9.5 mg/dL (8.5-10.5); Carbon Dioxide 19 mmol/L (22-29); Chloride 106 mmol/L (98-107); Creatinine Clr Calc Pharmacy 79.5078; Globulin 2.7 g/dL (1.3-4.6); Glomerular Filtration Rate 68.7 mL/min (90-130); Glucose 103 mg/dL (65-115); NT Pro B Type Natriuretic Pept < 36 pg/mL (0-125); Osmolality Calculated 289 mOsm/kg (285-295); Potassium 3.9 mmol/L (3.5-5.1); Sodium 139 mmol/L (136-145); Total Bilirubin 0.3 mg/dL (0.15-1.2); Total Protein 7.1 g/dL (6.6-8.7)
[2024-07-19] MEDS: iohexol 350 mg/mL 500 mL Btl (per mL) IV (18:58)
[2024-07-19 20:28] VITALS: BP 137/96; PULSE 85; RESP 16; O2SAT 98
[2024-07-19 20:29] LABS: Troponin 5 2HR < 6.0 ng/L (0-10); Troponin 5 2HR Delta 0 ABS# (0-10)
--- NOTE | 2024-07-19 21:14 | ED_ITS ---
HPI - Chest Pain 2 General: Chief Complaint: Chest Pain Stated Complaint: cp,pain down arm Time Seen by Provider: 07/19/24 17:41 History of Present Illness: This patient is a 43-year-old white female who presents to the emergency department complaining of left-sided chest pain, left shoulder pain and left arm pain. She states the pain radiates down the posterior aspect of the left arm. She feels like her left upper chest is somewhat swollen. Symptoms been going on for 1 week now. She has no shortness of breath. 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 Related Data Home Medications ?Medication ?Instructions ?Recorded ?Confirmed acetaminophen 500 mg tablet 500 - 1,000 mg PO Q6H PRN Pain 11/27/22 06/04/24 Previous Rx's ?Medication ?Instructions ?Recorded medroxyprogesterone 150 mg/mL 150 mg IM .EVERY 90 DAYS #1 mL 04/20/24 intramuscular suspension (Depo-Provera) baclofen 5 mg tablet 5 mg PO TID PRN muscle spasm #30 07/19/24 tabs Allergies Allergy/AdvReac Type Severity Reaction Status Date / Time codeine AdvReac nausea and Verified 06/04/24 08:02 vomiting Review of Systems 2 General: Reports: 10 or more systems reviewed and unremarkable except in HPI and below Card: Reports: chest pain PFSH ED 2 PFSH: Medical History (Updated 07/19/24 @ 20:11 by Irving Andrew MD) Facial lesion No pertinent past medical history Denies diabetes, asthma, hypertension, seizures, DVT/PE PCP: None--is in the process of finding a new PMD History of hiatal hernia States that she was diagnosed with a hiatal hernia in 2016 and thinks that her problems of generalized abdominal pain, gastritis and irritation and abdomen are secondary to this. Surgical History History of appendectomy Status post tubal ligation Laparoscopic procedure performed in 2009 Status post cholecystectomy Laparoscopic procedure performed on [address] Cheng History of breast augmentation 2001, bilateral Family History Mother Cancer Kidney Grandfather Parkinson disease maternal Denies family history of Cervical cancer Colon cancer Ovarian cancer Diabetes DVT (deep venous thrombosis) Heart disease Hyperlipidemia Breast cancer Anesthesia complication Bleeding disorder Pulmonary embolism Hypertension Uterine cancer Thyroid disease Stroke Social History Smoking and tobacco/nicotine status: current every day tobacco/nicotine user Alcohol intake: never Substance/Drug Use: never Physical Exam 2 Const: COMMON NORMALS: no acute distress, patient oriented x3 and no limitations GENERAL APPEARANCE: cooperative and comfortable HENMT: COMMON NORMALS: normocephalic, atraumatic, Normal nasal mucous membranes and turbinates present, moist oral mucous membranes and oropharynx normal HEAD & SCALP: normal to inspection, normocephalic and atraumatic F NICO & SINUS: normal facial exam NOSE: Normal nasal mucous membranes and turbinates present Eye: COMMON NORMALS: Equal, round and reactive pupils present, EOMs intact bilaterally and conjunctivae normal GENERAL EYE: appearance normal, both eyes and all related structures CONJUNCTIVA: Yes conjunctivae normal PUPIL: Yes Equal, round and reactive pupils present Neck/C-Spine: COMMON NORMALS: supple and no JVD Chest: OTHER: Palpation of the left upper chest wall does reproduce some discomfort. Resp: COMMON NORMALS: normal respiratory effort and clear to auscultation bilaterally AUSCULTATION: clear to auscultation bilaterally Cardio: COMMON NORMALS: no JVD, regular rate, regular rhythm, No gallops present (Cardio), No murmurs present (Cardio) and No rub (Cardio) RATE: r egular rate RHYTHM: regular rhythm GI: COMMON NORMALS: Normal to inspection, nondistended, normoactive bowel sounds present, Soft to palpation and non-tender AUSCULTATION: Yes normoactive bowel sounds PALPATION: Yes Soft to palpation : COMMON NORMALS: Yes no CVA tenderness BLADDER/KIDNEY EXAM: Yes no CVA tenderness Back/Pelvis: COMMON NORMALS: no CVA tenderness and thoracic and lumbar spine normal to inspection Extremity: COMMON NORMALS: normal to inspection Neuro: COMMON NORMALS: patient oriented x3 and CN's II-XII intact bilaterally Psych: COMMON NORMALS: mental status grossly normal, Normal thought process present and cooperative THOUGHT PROCESS: Normal thought process present Skin: COMMON NORMALS: no rashes or lesions noted, turgor normal and no jaundice GENERAL SKIN EXAM: no rashes or lesions noted and turgor normal Course 2 Vital Signs: Vital signs: Vital Signs Temperature 98.1 F 07/19/24 16:34 Pulse Rate 85 07/19/24 20:28 Respiratory Rate 16 07/19/24 20:28 Blood Pressure 137/96 07/19/24 20:28 Pulse Oximetry 98 07/19/24 20:28 Oxygen Delivery Me thod Room Air 07/19/24 18:43 MDM - Chest Pain Medical Decision Making EKG revealed sinus tachycardia at a rate of 111. No ST segment abnormalities. CT angiogram of the chest was read by the radiologist as normal. CBC and CMP were normal. D-dimer was less than 0.27. BNP was less than 36. Troponin less than 6. Patient declined pain medication in the emergency department. I did recommend she try ibuprofen at home and I did place her on baclofen. Recommended she follow-up with her primary care provider next week for recheck. She was discharged in stable condition. Lab Data 07/19/24 18:10 07/19/24 18:10 Radiology Impressions Chest CTA 07/19/24 17:58 IMPRESSION: No pulmonary embolism. Laboratory Results WBC 7.06 10^3/uL (3.29-11.43) 07/19/24 18:10 RBC 4.83 10^6/uL (3.85-5.65) 07/19/24 18:10 Hgb 14.40 g/dL (11.27-16.99) 07/19/24 18:10 Hct 44.6 % (36-47) 07/19/24 18:10 MCV 92.3 fl (85-98) 07/19/24 18:10 MCH 29.8 pg (27-33) 07/19/24 18:10 MCHC 32.3 g/dL (30-55) 07/19/24 18:10 RDW 12.8 % (12.1-15.1) 07/19/24 18:10 Plt Count 217 10^3/cmm (157-399) 07/19/24 18:10 MPV 9.6 fL (7.4-10.4) 07/19/24 18:10 Neut % (Auto) 62.4 % 07/19/24 18:10 Lymph % (Auto) 29.7 % 07/19/24 18:10 [place] % (Auto) 6.1 % 07/19/24 18:10 Eos % (Auto) 0.8 % 07/19/24 18:10 Baso % (Auto) 0.7 % 07/19/24 18:10 Neut # (Auto) 4.40 10^3/uL (1.8-7.7) 07/19/24 18:10 Lymph # (Auto) 2.1 10^3/uL (0.8-4.8) 07/19/24 18:10 [place] # (Auto) 0.4 10^3/uL (0.2-0.9) 07/19/24 18:10 Eos # (Auto) 0.1 10^3/uL (0.0-0.8) 07/19/24 18:10 Baso # (Auto) 0.1 10^3/uL (0.0-0.1) 07/19/24 18:10 Nucleated RBC % (auto) 0 % 07/19/24 18:10 Nucleated RBCs # 0.0 /100WBC 07/19/24 18:10 D-Dimer <= 0.27 ug/mLFEU (0-0.59) 07/19/24 18:10 Sodium 139 mmol/L (136-145) 07/19/24 18:10 Potassium 3.9 mmol/L (3.5-5.1) 07/19/24 18:10 Chloride 106 mmol/L (98-107) 07/19/24 18:10 Carbon Dioxide 19 mmol/L (22-29) L 07/19/24 18:10 Anion Gap 17.9 (5-19) 07/19/24 18:10 BUN 14 mg/dL (6-20) 07/19/24 18:10 Creatinine 0.9 mg/dL (0.5-0.9) 07/19/24 18:10 GFR Calculation 68.7 mL/min (90-130) L 07/19/24 18:10 Glucose 103 mg/dL (65-115) 07/19/24 18:10 Calculated Osmolality 289 mOsm/kg (285-295) 07/19/24 18:10 Calcium 9.5 mg/dL (8.5-10.5) 07/19/24 18:10 Total Bilirubin 0.3 mg/dL (0.15-1.2) 07/19/24 18:10 AST 16 U/L (0-32) 07/19/24 18:10 ALT 23 U/L (0-33) 07/19/24 18:10 Alkaline Phosphatase 54 U/L (35-105) 07/19/24 18:10 Troponin T Baseline < 6 ng/L (0-10) 07/19/24 18:10 Troponin T 120 Minute < 6.0 ng/L (0-10) 07/19/24 19:59 Delta Troponin T 0 ABS# (0-10) 07/19/24 19:59 NT-Pro-B Natriuret Pep < 36 pg/mL (0-125) 07/19/24 18:10 Total Protein 7.1 g/dL (6.6-8.7) 07/19/24 18:10 Albumin 4.4 g/dL (3.5-5.2) 07/19/24 18:10 Globulin 2.7 g/dL (1.3-4.6) 07/19/24 18:10 All radiology interpretation(s) finalized by discharge Discharge Plan Discharge Patient Disposition: Home Clinical Impression: Chest wall pain Condition: Stable Prescriptions: New baclofen 5 mg tablet 5 mg PO TID PRN (Reason: muscle spasm) Qty: 30 0RF No Action medroxyprogesterone [Depo-Provera] 150 mg/mL suspension 150 mg IM .EVERY 90 DAYS Qty: 1 5RF acetaminophen 500 mg Tablet 500 - 1,000 mg PO Q6H PRN (Reason: Pain) Discharge Orders: Discharge ED (Routine); Ordered 07/19/24 Ordered By: Irving Andrew Referrals: Gerson Rossi MD [Primary Care Provider, Family Practice] Patient Instructions: Chest Wall Pain (ED) Activity Restrictions/Additional Instructions: Take ibuprofen and the muscle relaxer. Follow-up with your primary care provider on Tuesday as scheduled. Print Language: Kittitian Coding Level of Care Code ED Bio Medical Technician for Alice Wilde
== END 2024-07-19 20:29 | disposition home or self-care (01) ==
PROVIDERS: Emergency Provider Emergency Medicine; PCP Family Medicine
DX: R07.89 Other chest pain (principal); Z72.0 Tobacco use
CPT/HCPCS: 36415; 71275; 80053; 83880; 84484; 85025; 85378; 93005; 99285

== ENCOUNTER 2024-08-27 07:59 | Outpatient (CLI) | payer OTHER, SELFPAY ==
--- NOTE | 2024-08-27 08:00 | MM_ITS ---
WS: [id number] BILATERAL 3D TOMOSYNTHESIS DIGITAL DIAGNOSTIC MAMMOGRAPHY WITH CAD CLINICAL INFORMATION: R92.8 - Other abnormal and inconclusive findings on diagn... HISTORY: LEFT breast pain and lump COMPARISON: 2023 and 05/08/2024 TECHNIQUE: Bilateral CC, MLO, and ML views. FINDINGS: Stable bilateral breast implants. Scattered fibroglandular densities bilaterally. Palpable marker upper outer LEFT breast. Ultrasound of this area is pending. Pain markers inner LEFT breast with pending ultrasound. Normal size lymph nodes LEFT axilla. RIGHT breast is unremarkable and unchanged in appearance. ULTRASOUND BREAST LEFT TECHNIQUE: Ultrasound left breast focused area of concern. CLINICAL INFORMATION: R92.8 - Other abnormal and inconclusive findings on diagn... FINDINGS: Ultrasound LEFT breast areas of concern. Normal-appearing lymph nodes along the axillary tail in the area of palpable abnormality. Normal underlying parenchymal tissue in her LEFT breast in the area of pain. Findings are benign. Recommend return to annual screening mammography MM/MM diag BI tomosynthesis [id number] IMPRESSION: DENSITY: There are scattered areas of fibroglandular density. BI-RADS: 2 - Benign. FOLLOW UP: 1 Year Follow-up Recommend return to annual screening mammography.
--- NOTE | 2024-08-27 08:54 | US_ITS ---
WS: [id number] BILATERAL 3D TOMOSYNTHESIS DIGITAL DIAGNOSTIC MAMMOGRAPHY WITH CAD CLINICAL INFORMATION: R92.8 - Other abnormal and inconclusive findings on diagn... HISTORY: LEFT breast pain and lump COMPARISON: 2023 and 05/08/2024 TECHNIQUE: Bilateral CC, MLO, and ML views. FINDINGS: Stable bilateral breast implants. Scattered fibroglandular densities bilaterally. Palpable marker upper outer LEFT breast. Ultrasound of this area is pending. Pain markers inner LEFT breast with pending ultrasound. Normal size lymph nodes LEFT axilla. RIGHT breast is unremarkable and unchanged in appearance. ULTRASOUND BREAST LEFT TECHNIQUE: Ultrasound left breast focused area of concern. CLINICAL INFORMATION: R92.8 - Other abnormal and inconclusive findings on diagn... FINDINGS: Ultrasound LEFT breast areas of concern. Normal-appearing lymph nodes along the axillary tail in the area of palpable abnormality. Normal underlying parenchymal tissue in her LEFT breast in the area of pain. Findings are benign. Recommend return to annual screening mammography US/US breast LT limited* [id number] IMPRESSION: DENSITY: There are scattered areas of fibroglandular density. BI-RADS: 2 - Benign. FOLLOW UP: 1 Year Follow-up Recommend return to annual screening mammography.
== END 2024-08-27 08:00 | disposition home or self-care (01) ==
PROVIDERS: PCP Family Medicine; Visit Provider Obstetrics & Gynecology
DX: N63.21 Unspecified lump in the left breast, upper outer quadrant (principal); Z98.82 Breast implant status; R92.323 Mammographic fibroglandular density, bilateral breasts; R92.8 Other abnormal and inconclusive findings on diagnostic imaging of breast
CPT/HCPCS: 76642; 77062; G0279